=== PATIENT | male | born 1995 | race American Indian/Alaskan Native ===

== ENCOUNTER 2017-05-03 18:15 | Emergency (ER) | payer SELFPAY ==
[2017-05-03 19:38] LABS: Bacteria,Urine 1+ /HPF (Negative); Bilirubin,Urine NEG (Negative); Blood,Urine NEG (Negative); Ketones,Urine TR mg/dL (Negative); Leukocyte Esterase,Urine NEG (Negative); Mucus,Urine 3+ /HPF; Nitrite,Urine NEG (Negative); Urobilinogen,Urine < 2.0 mg/dL (<2.0)
[2017-05-03] MEDS ORDERED: XYLOCAINE 1% MPF 5 mL INFILTRATI ONE (19:59)
[2017-05-03] MEDS ORDERED: ZITHROMAX PO ONE (19:59)
[2017-05-03] MEDS ORDERED: ROCEPHIN IM ONE (19:59)
--- NOTE | 2017-05-03 20:15 | Emergency Department Report ---
ED Male HPI - General Chief complaint: Urogenital-Male Stated complaint: discharge Time Seen by Provider: 05/03/17 19:44 Source: patient Mode of arrival: Ambulatory Limitations: No Limitations - History of Present Illness Initial comments: PT c/o penile discharge x 3 days. PT states he had a "bad partner" and she told him that she has chlamydia. PT denies hx of STD. MD Complaint: penile discharge Onset/Timin -: Gradual, days(s) Location: penis Severity scale (0 -10): 0 Consistency: constant Improves with: none Worsens with: none new sexual partner ("bad" partner ) discharge. denies: swelling, mass, blood in urine, dysuria, fever, nausea/ vomiting - Related Data Sexually active: Yes Home Medications Medication Instructions Recorded Confirmed Last Taken No Known Home Medications [No 05/03/17 05/03/17 Unknown Reported Home Medications] Allergies Allergy/AdvReac Type Severity Reaction Status Date / Time No Known Allergies Allergy Unverified 05/03/17 18:37 ED Review of Systems ROS: Stated complaint: POSSIBLE ALLERGIC REACTION Other details as noted in HPI Comment: All other systems reviewed and negative Constitutional: denies: chills, fever Gastrointestinal: denies: nausea, vomiting Genitourinary: discharge. 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 Absent: conjunctival injection - ENT ENT exam: Present: normal exam, normal orophraynx, mucous membranes moist, normal external ear exam - Neck Neck exam: Present: normal inspection, full ROM - Respiratory Respiratory exam: Present: normal lung sounds bilaterally. Absent: respiratory distress - Cardiovascular Cardiovascular Exam: Present: regular rate, normal rhythm, normal heart sounds - GI/Abdominal GI/Abdominal exam: Present: soft. Absent: tenderness - Extremities Exam Extremities exam: Present: normal inspection, full ROM - Back Exam Back exam: Present: normal inspection, full ROM - Neurological Exam Neurological exam: Present: alert, oriented X3 - Psychiatric Psychiatric exam: Present: normal affect, normal mood - Skin Skin exam: Present: warm, dry, intact ED Course Vital Signs 05/03/17 18:38 Temperature 98.7 F Pulse Rate 74 Respiratory 17 Rate Blood Pressure 132/85 O2 Sat by Pulse 100 Oximetry - Reevaluation(s) Reevaluation #1: 05/03/17 20:25 PT aware of plan of care. Reevaluation #2: 05/03/17 21:40 pt empirically treated for his known exposure. PT advised to refrain from sexual activity for the next seven days and to follow up for full panel STD testing - Pulse Oximetry Interpretation Digit-Finger Initial Pulse Oximetry Readin Actions Taken: none ED Medical Decision Making - Differential Diagnosis STD, risky sexual behavior Critical Care Time: No Critical care attestation.: If time is entered above; I have spent that time in minutes in the direct care of this critically ill patient, excluding procedure time. ED Disposition Clinical Impression: Penile discharge, Exposure to STD Disposition: DC-01 TO HOME OR SELFCARE Is pt being admited?: No Does the pt Need Aspirin: No Condition: Stable Instructions: Sexually Transmitted Diseases (ED), Condom Use (ED), Safe Sex (ED ) Additional Instructions: No sex for the next seven days follow up with the health dept or PCP for full panel STD testing all of your sexual partners will need testing/ treatment Referrals: JANICE PERALTA JR, MD [Staff Physician] - 3-5 Days [facility] [Outside] - 3-5 Days Forms: Work/School Release Form(ED) Time of Disposition: 21:41
[2017-05-04 00:48] VITALS: BP 135/76
== END 2017-05-03 22:30 | disposition home or self-care (01) ==
LOC: ED 18:15
DX: R36.9 Urethral discharge, unspecified (principal); F17.210 Nicotine dependence, cigarettes, uncomplicated; Z20.2 Contact with and (suspected) exposure to infections with a predominantly sexual mode of transmission; Z85.89 Personal history of malignant neoplasm of other organs and systems
CPT/HCPCS: 81001; 96372; 99283; J0696